=== PATIENT | male | born 1990 | race Caucasian/White ===

== ENCOUNTER 2024-10-10 17:18 | Emergency (ER) | payer MEDICAID ==
[~2024-10-10] VITALS: Ht 167.6 cm; Wt 83.4 kg
[2024-10-10] MEDS ORDERED: IBUP-1984 PO (17:56)
[2024-10-10] MEDS ORDERED: DOXY100C43 PO (17:56)
[2024-10-10 18:04] VITALS: BP 136/87; PULSE 105; RESP 16; TEMP 99.1; O2SAT 99
== END 2024-10-10 18:06 | disposition home or self-care (01) ==
LOC: ER 17:20
DX: J34.89 Other specified disorders of nose and nasal sinuses (principal); Z88.5 Allergy status to narcotic agent
CPT/HCPCS: 99283